=== PATIENT | male | born 1935 | race Caucasian/White ===

== ENCOUNTER 2019-01-19 20:49 | Emergency (ER) | payer MEDICARE ==
[~2019-01-19] VITALS: Ht 175.3 cm; Wt 56.4 kg
[2019-01-19 20:54] VITALS: BP 138/71; TEMP 98
[2019-01-19] MEDS ORDERED: LIPITOR 40MG TA40 MG PO (21:55)
[2019-01-19] MEDS ORDERED: NORVASC 5MG5 MG/TAB PO (21:55)
[2019-01-19 21:56] VITALS: PULSE 59
[2019-01-19] MEDS ORDERED: INDERAL 10MG10 MG PO (21:56)
== END 2019-01-19 21:57 | disposition home or self-care (01) ==
LOC: COL.ER 20:49
DX: S63.501A Unspecified sprain of right wrist, initial encounter (principal); X50.9XXA Other and unspecified overexertion or strenuous movements or postures, initial encounter

== ENCOUNTER → 2020-01-30 | Outpatient (CLI) | payer MEDICARE ==
[~2020-01-30] MED LIST: INDERAL 10MG10 MG PO; LIPITOR 40MG TA40 MG PO; NORVASC 5MG5 MG/TAB PO
== END ==
LOC: COL.LAB 16:19
DX: M79.89 Other specified soft tissue disorders (principal); R23.8 Other skin changes

== ENCOUNTER → 2020-05-30 | Outpatient (CLI) | payer MEDICARE | LOC: COL.RAD 12:58 | DX: D69.6 Thrombocytopenia, unspecified (principal); I71.4 Abdominal aortic aneurysm, without rupture ==

== ENCOUNTER → 2022-07-24 | Outpatient (CLI) | payer MEDICARE | LOC: COL.RAD 10:07 | DX: M25.551 Pain in right hip (principal); Z96.641 Presence of right artificial hip joint | CPT/HCPCS: J3301; Q9967 ==